=== PATIENT | male | born 1975 | race Two or more races ===

== ENCOUNTER 2022-08-10 14:35 | Emergency (ER) | payer MEDICAID, SELFPAY ==
[2022-08-10] VITALS (15 sets, daily range): BP systolic 184–202; BP diastolic 96–110; PULSE 94–104; RESP 16; TEMP 36.7; O2SAT 90–98; BMI 26.4
--- NOTE | 2022-08-10 14:44 | ED.NURSE ---
Pt is A&) x4 and states he does not feel the same way as he felt when he had a stroke 2 years ago. Pt is talking in coherent sentences, but walks very slowly because of his headache. he is also dizzy and naseous.
--- NOTE | 2022-08-10 15:17 | ED_ITS ---
HPI - General Adult General Time Seen by Provider: 15:17 Date Seen: 08/10/22 Chief complaint: Dizziness/Vertigo Stated complaint: Headache, nausea Time Seen by Provider: 08/10/22 14:55 Source: patient Mode of arrival: ambulatory Limitations: no limitations History of Present Illness HPI narrative: 46-year-old male who comes in today with 3-4 days of headache. Headache is generalized, and constant. Not worse with position. He has not taken any medication for this. He notes nausea and some photophobia but no vomiting. He denies cough, fever, chills, runny nose. History of prior stroke but no new weakness today. Related Data Home Medications Medication Instructions Recorded Confirmed atorvastatin 40 mg tablet mg 08/10/22 blood sugar diagnostic (Accu-Chek 08/10/22 08/10/22 Guide test strips) insulin glargine 100 unit/mL unit subcut 08/10/22 subcutaneous solution (Lantus U-100 Insulin) lisinopril 5 mg tablet mg 08/10/22 metformin 1,000 mg tablet mg 08/10/22 pen needle, diabetic 31 gauge x 08/10/22 08/10/22 3/16 (BD Ultra-Fine Mini Pen Needle) trazodone 100 mg tablet mg 08/10/22 Allergies Allergy/AdvReac Type Severity Reaction Status Date / Time No Known Drug Allergies Allergy Verified 08/10/22 15:12 Review of Systems Status of ROS: Reports: 10 or more systems reviewed and unremarkable except as noted in History and below PFSH PFSH Social History Smoking Status: Former smoker Do you use any of these nicotine containing products: None Second hand tobacco smoke exposure: No How often do you have a drink containing alcohol: never AUDIT-C Alcohol total score: 0 Non-prescribed substance use: denies use Exam Narrative: Exam Narrative: General: Well-developed and well-nourished, no acute distress Head: Atraumatic and normocephalic Eyes: Pupils are equal reactive, extraocular motions intact, conjunctiva clear ENT: External nose and ears are normal, posterior pharynx without erythema or exudate Neck: No midline cervical tenderness, full spontaneous range of motion the neck, trachea midline, no adenopathy Heart: Regular rate and rhythm no murmurs or thrills Lungs: Clear to auscultation bilaterally without wheezes or crackles Abdomen: Soft, nontender, nondistended with active bowel sounds Musculoskeletal: No tenderness, deformity, or edema Neurologic: Awake, alert, and oriented x3, no gross focal neurologic deficits, cranial nerves intact as tested Psych: Mood and affect are appropriate Skin: No rashes Const: Vital Signs, click to edit/add: Vital Signs - 24 hr 08/10/22 14:39 08/10/22 15:54 08/10/22 16:00 Temperature 98.0 F Pulse Rate 97 97 Pulse Rate [Pulse Oximeter] 104 H Respiratory Rate 16 Blood Pressure Blood Pressure [Ri ght Upper Arm] 202/97 H Pulse Oximetry 98 95 95 Oxygen Delivery Me thod Room Air Room Air 08/10/22 16:15 08/10/22 16:26 08/10/22 16:30 Temperature Pulse Rate 97 96 97 Pulse Rate [Pulse Oximeter] Respiratory Rate Blood Pressure 200/110 H Blood Pressure [Ri ght Upper Arm] Pulse Oximetry 96 94 92 Oxygen Delivery Me thod 08/10/22 16:31 08/10/22 16:45 08/10/22 16:46 Temperature Pulse Rate 97 94 94 Pulse Rate [Pulse Oximeter] Respiratory Rate Blood Pressure 197/105 H 192/106 H Blood Pressure [Ri ght Upper Arm] Pulse Oximetry 94 94 94 Oxygen Delivery Me thod 08/10/22 17:00 08/10/22 17:01 08/10/22 17:15 Temperature Pulse Rate 94 94 99 Pulse Rate [Pulse Oximeter] Respiratory Rate Blood Pressure 192/96 H Blood Pressure [Ri ght Upper Arm] Pulse Oximetry 93 92 92 Oxygen Delivery Me thod 08/10/22 17:16 08/10/22 17:30 08/10/22 17:31 Temperature Pulse Rate 94 98 97 Pulse Rate [Pulse Oximeter] Respiratory Rate Blood Pressure 184/108 H 190/102 H Blood Pressure [Ri ght Upper Arm] Pulse Oximetry 93 90 94 Oxygen Delivery Me thod Course Course Hospital Course: Patient seen examined, prior records reviewed. Patient presents with generalized headache, nausea, and photophobia. History of prior acute CVA but no new neurologic symptoms today. Denies head injury. Has not taken anything for his head. Patient is hypertensive on initial arrival and tachycardic. Labs and head CT are ordered, consider an MRI but no new neurologic symptoms and no focal neurologic deficits on exam. Toradol and fluids are ordered. Will monitor blood pressure. Reevaluation(s) Reevaluation #1: CT scan the head independently interpreted by me does not demonstrate any acute findings, radiology interpretation agrees. Chest x-ray independently interpreted by me does not demonstrate any acute findings, radiology interpretation agrees. Time: 16:06 Reevaluation #2: Blood pressure slightly improved after rest. Discussed diagnosis and plan with patient. Patient is COVID positive which likely is the source of his headache and generalized weakness. Discussed continued symptomatic treatment and patient can be discharged. Time: 17:24 Vital Signs Vital signs: Initial Vital Signs Temperature 98.0 F 08/10/22 14:39 Temperature Source Temporal Artery Scan 08/10/22 14:39 Pulse Rate 104 H 08/10/22 14:39 Pulse Rhythm 08/10/22 14:39 Pulse Strength 3+ Normal 08/10/22 14:39 Respiratory Rate 16 08/10/22 14:39 Blood Pressure 202/97 H 08/10/22 14:39 Blood Pressure Mean 132 08/10/22 14:39 Pulse Oximetry 98 08/10/22 14:39 Oxygen Delivery Method 08/10/22 14:39 Vital Signs Temperature 98.0 F 08/10/22 14:39 Pulse Rate 104 H 08/10/22 14:39 Respiratory Rate 16 08/10/22 14:39 Blood Pressure 202/97 H 08/10/22 14:39 Pulse Oximetry 98 08/10/22 14:39 Oxygen Delivery Method 08/10/22 14:39 Temperature 98.0 F 08/10/22 14:39 Pulse Rate 97 08/10/22 17:31 Respiratory Rate 16 08/10/22 14:39 Blood Pressure 190/102 H 08/10/22 17:31 Pulse Oximetry 94 08/10/22 17:31 Oxygen Delivery Method 08/10/22 15:54 Medical Decision Making Medical Records Medical records reviewed: Yes I reviewed the patient's medical records Lab Data Lab results reviewed: Yes I reviewed the patient's lab results Labs: Lab Results 08/10/22 08/10/22 Range/Units 15:30 15:30 Sodium 140 (135-149) mmol/L Potassium 4.2 (3.6-5.1) mmol/L Chloride 105 (96-114) mmol/L Carbon Dioxide 28 (20-32) mmol/L BUN 30 H (5-24) mg/dL Creatinine 1.1 (0.5-1.5) mg/dL Estimated Creat Clear 69.52 Estimated GFR 83 ml/min Glucose 127 H (60-115) mg/dL Calcium 8.4 (8.4-10.6) mg/dL NT-Pro-B Natriuret Pep 121 pg/mL SARS-CoV-2 (PCR) POSITIVE SARS-CoV-2 A (Negative) Influenza Type A (PCR) Negative PCR FLU A (Negative) Influenza Type B (PCR) Negative PCR FLU B (Negative) Discharge Plan Discharge Clinical Impression: COVID, Hypertension Patient Disposition: Home, Self-Care Condition: Stable Instructions: COVID-19 (Coronavirus Disease 2019) (ED) Additional Instructions: Tylenol and ibuprofen for headache Take your usual medications as prescribed Tylenol e ibuprofeno para el dolor de felicitas [place] elena medicamentos habituales seg?n lo prescrito Activity Level: No Restrictions Discharge Diet: Regular Prescriptions: No Action atorvastatin 40 mg tablet Label Comments: TAKE 1 TABLET BY MOUTH AT BEDTIME insulin glargine [Lantus U-100 Insulin] 100 unit/mL solution SUBCUT Label Comments: INJECT 14 UNITS SUBCUTANEOUS BEFORE BEDTIME. PRODUCT DESIRED: LANTUS trazodone 100 mg tablet Label Comments: TAKE 1 TABLET BY MOUTH AT BEDTIME metformin 1,000 mg tablet lisinopril 5 mg tablet Label Comments: TAKE 1 TABLET BY MOUTH EVERY DAY (DME) Accu-Chek Guide test strips Strip MISCELLANEOUS Label Comments: DIRECTED FOUR TIMES DAILY. DISPENSE ITEM COVERED BY PT INS. E11.9 IDDM TYPE II (DME) pen needle, diabetic [BD Ultra-Fine Mini Pen Needle] 31 gauge x 3/16 needle MISCELLANEOUS Label Comments: USE TO ADMINSTER INSULIN AT HOME Stand Alone Forms: [facility] Info Instructions
--- NOTE | 2022-08-10 15:20 | CRLHL7_ITS ---
For Patients: As a result of the Century Cures Act, medical imaging exams and procedure reports are released immediately into your electronic medical record. You may view this report before your referring provider. If you have questions, please contact your health care provider. INDICATION: Headache, prior CVA TECHNIQUE: CT head without contrast. COMPARISON: Head CT October 2019. FINDINGS: Generalized volume loss. No intracranial hemorrhage. No discrete mass or mass effect. There is no midline shift. The basilar cisterns are patent. No hydrocephalus. The hillman-white matter interface is otherwise preserved. No acute osseous abnormality. No extracalvarial soft tissue abnormality. The mastoid air cells are clear. Hypo pneumatization of the right frontal sinus. The visualized portions of the orbits and globes are unremarkable. IMPRESSION: No acute intracranial process per unenhanced head CT. Please note that all CT scans at this facility use dose modulation, iterative reconstruction, and/or weight-based dosing when appropriate to reduce radiation dose to as low as reasonably achievable. Dictated by Justin Douglass MD @ 08/10/2022 3:58:49 PM (Electronically Signed)
--- NOTE | 2022-08-10 15:20 | CRLHL7_ITS ---
For Patients: As a result of the Cures Act, medical imaging exams and procedure reports are released immediately into your electronic medical record. You may view this report before your referring provider. If you have questions, please contact your health care provider. INDICATION: Tachycardia, cough. TECHNIQUE: Chest 2 views. COMPARISON: None. FINDINGS: Lungs: Normal lung volume. No consolidation. Multiple calcified granulomas in the right lung. Pleura: No pleural effusion or pneumothorax. Heart and Mediastinum: Normal heart size. The great vessels of the thorax are unremarkable. Bones: No acute displaced osseous process. IMPRESSION: No consolidation. Dictated by Justin Douglass MD @ 08/10/2022 4:00:21 PM (Electronically Signed)
[2022-08-10] MEDS: KETOROLAC 15 MG/ML inj IVP (15:56)
[2022-08-10] MEDS: ONDANSETRON 2 MG/ML inj 4 MG IVP (15:56)
[2022-08-10] MEDS: 0.9 % SODIUM CHLORIDE 1000 ml 1,000 ML IV (15:56)
[2022-08-10 16:23] LABS: PCR FLU A Negative PCR FLU A (Negative); PCR FLU B Negative PCR FLU B (Negative)
[2022-08-10 16:24] LABS: SARS PCR* POSITIVE SARS-CoV-2 (Negative)
[2022-08-10 17:06] LABS: Blood Urea Nitrogen* 30 mg/dL (5-24); Calcium* 8.4 mg/dL (8.4-10.6); Carbon Dioxide* 28 mmol/L (20-32); Chloride* 105 mmol/L (96-114); Creatinine* 1.1 mg/dL (0.5-1.5); Est. Creatinine Clearance* 69.52; Estimated Glomerular Filt Rate 83 ml/min; Potassium* 4.2 mmol/L (3.6-5.1); Sodium* 140 mmol/L (135-149)
[2022-08-10 17:07] LABS: Glucose* 127 mg/dL (60-115); NT Pro B Type NatriureticPept* 121 pg/mL
== END 2022-08-10 17:35 | disposition home or self-care (01) ==
PROVIDERS: Emergency Provider Family Medicine; PCP Family Medicine
DX: U07.1 COVID-19 (principal); I10 Essential (primary) hypertension
CPT/HCPCS: 36415; 70450; 71046; 80048; 83880; 87631; 96374; 96375; 99283; 99284; 99285; J1885; J2405; J7030

== ENCOUNTER 2025-01-24 11:35 | Emergency (ER) | payer MEDICAID, SELFPAY ==
--- OUTSIDE RECORDS SUMMARY | 2025-01-24 11:39 | XMS_ITS | Clinical Summary ---
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 90 tablet 3 0 Active blood-glucose meterIndications :Diabetes mellitus without complication (HC) As directed. Accu chek Guide, Test 1 times dailyAs directed. Please refill supplies for 1 year. 1 Each 3 Active medication order composer Guava, cinnamon, nepalese root tea leaves for blood sugar control Active traZODone (DESYREL) 100 mg tabletIndication s:Insomnia, unspecified type Take 1 Tablet (100 mg) by mouth at bedtime. 90 Tablet 3 4 Active blood sugar diagnostic (Accu-Chek Guide test strips) stripIndications :Diabetes mellitus without complication (HC) Dispense item covered by pt ins. E11.9 IDDM type II. Check blood sugar once daily. 100 Each 3 4 Active atorvastatin (LIPITOR) 40 mg tabletIndication s:Cerebrovascula r accident (CVA) due to thrombosis of cerebral artery (HC) Take 1 Tablet (40 mg) by mouth at bedtime. 90 Tablet 3 4 Active lancets (Accu-Chek Fastclix Lancet Drum)Indications :Diabetes mellitus without complication (HC) As directed once daily. Dispense item covered by pt ins. E11.9 NIDDM type II - Test 1 time/day 100 Each 3 4 Active polyethylene glycol-electroly te 236-22.74-6.74 -5.86 gram suspensionIndica tions:Encounter for screening colonoscopy Drink 2 liters (half the bottle) the day before colonoscopy and 2 liters (remaining prep) 6 hours prior to colonoscopy appointment. 4000 mL 5 Active Additional Information Patient not taking.Reported on 01/23/2025 chlorthalidone 25 mg tabletIndication s:HTN (hypertension) Take 0.5 Tablets (12.5 mg) by mouth once daily in the morning. 45 Tablet 3 5 Active Additional Information Patient not taking.Reported on 01/23/2025 lisinopriL 10 mg tabletIndication s:HTN (hypertension) TAKE 1 TABLET BY MOUTH TWO TIMES DAILY. 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 He weighed 170 pounds and was eating a lot of sweets then. Encounters Date Type Department Care Team Description 01/24/2025 Telephone [facility] [address] [place] [address] Augie Burch MD 01/24/2025 Telephone [facility] [address] [facility] [place] [address] Mindy Niharikaangeline Pyle, DO Abnormal Lab Results 01/23/2025 9:15 AM CDT Office Visit [facility] [address] [facility] [place] [address] Augie Burch MD Diabetes (Diabetic Check ) 01/23/2025 Travel 12/10/2024 Orders Only [facility] Scanner 1 scan: (1-Ord) [facility], 12/10/2024 12/05/2024 Refill [facility] [address] [place] [address] Augie Burch MD Refill Request (Lisinopril) 11/28/2024 Telephone [facility] [address] [place] [address] Óscar Marshall MD Screening 11/14/2024 9:15 AM CDT Office Visit [facility] [address] [place] [address] Augie Burch MD Pre-Op Exam (Pre-colonscopy ) 11/14/2024 Travel 10/26/2024 Telephone [facility] [address] [place] [address] Augie Burch MD Medication Management from Last 3 Months Immunizations Immunization Administration Dates Next Due COVID-19 VACCINE SPIKEVAX (M ODERNA 50MCG/0.5ML) 12YO+ PFS 07/24/2024,05/11/2023 COVID-19 vaccine (Kalie-J&J) PF MDV COVID-19 vaccine (Preparis-Bio NTech 30mcg/0.3mL) PFMDV 08/12/2021 Hepatitis B (Adult) 12/10/2022,08/31/2021,2019 INFLUENZA, IIV3 PF (AGE >= 6 MO) 07/24/2024 Influenza, IIV4 05/11/2023,05/11/2021 Pneumococcal Conj 20-valent (Prevnar 20) 022 Pneumococcal Poly,23-Valent (Pneumovax) 02/27/20 20 Tdap 02/27/2020 Zoster (Shingrix-RZV, recombinant) 10/23/2024 Family History Medical History Relation Name Comments Diabetes type II Brother Alcoholism Father Good Health Mother Diabetes type II Sister Relation Name Status Comments Brother Alive Father (Age 35) Alcohol ab use Mother Alive Sister Alive Social History Tobacco Use Types Packs/Day Years Used Date Smoking Tobacco: Never Passive Smoke Exposure: Yes Smokeless Tobacco: Never Tobacco Cessation:Counseling Given: No Alcohol Use Standard Drinks/Week Comments Not Currently 0 (1 standard drink = 0.6 oz pur e alcohol) none PHQ-2 Answer Date Recorded PHQ-2 TOTAL SCORE 0 01/23/2025 Social Connections Answer Date Recorded Do you often feel lonely or isolated from those around you? 0 01/23/2025 Financial Resource Strain Answer Date R ecorded Difficulty of Paying Living Expenses 3 01/23/2025 Difficulty of Paying Living Expenses Not on file 01/23/2025 Food Insecurity Answer Date Recorded Do you worry your food will run out before you are able to buy more? 2 01/23/2025 Transportation Needs Answer Date Record ed Does lack of transportation keep you from medica l appointments? 2 01/23/2025 Does lack of transportation keep you from work, meetings or getting things that you need? 2 01/23/2025 Housing Stability Answer Date Recorded What is your housing situation today? 1 01/23/2025 Utilities Answer Date Recorded Do you have trouble paying f or utilities (for example, heat, electricity, water, phone)? 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 Gender Identity Not on file Sexual Orientation Not on file Obstetrics History Last Filed Vital Signs Vital Sign Reading Time Taken Comments Blood Pressure 143/76 01/23/2025 10:13 AM CDT Pulse 60 01/23/2025 9:56 AM CDT Temperature 36.3 C (97.3 F) 10/23/2024 9:31 AM CDT Respiratory Rate 18 12/25/2019 6:30 AM CDT Oxygen Saturation 100% 01/23/2025 9:56 AM CDT Inhaled Oxygen Concentration - - Weight 68.6 kg (151 lb 3.2 oz) 01/23/2025 9:56 A M CDT Height 163 cm (5' 4.17) 10/23/2024 9:31 AM CDT Body Mass Index 25.81 10/23/2024 9:31 AM CDT Plan of Treatment Upcoming Encounters Date Type Department Care Team (Late st Contact Info) Description 07/18/2025 9:30 AM AUXILIARY EQUIPMENT OPERATOR Orders Only [facility] [address] [place] [address] [place], [place] 07/26/2025 9:15 AM AUXILIARY EQUIPMENT OPERATOR Office Visit [facility] [address] [place] [address] Augie Burch MD [address] [place] [address] Health Maintenance Due Date Last Done Comments Zoster (shingles) series for age 50+ (2 of 2) 12/18/2024 10/23/2024 BMI (ht and wt on same day) for age 18+ 10/23/2025 10/23/2024, 12/14/2021, 08/24/2021, Additional history exists Depression screening for age 12+ 01/23/2026 01/23/2025, 12/07/2023, 12/07/2023, Additional history exists Lipids for age 45-75 01/23/2030 01/23/2025, 10/23/2024, 05/14/2024, Additional history exists Tetanus booster 02/26/2030 02/27/2020 Colonoscopy through age 75 11/28/2034 11/28/2024 Tdap Completed 02/27/2020 Pneumococcal series for age 50+ Completed , 02/27/2020 HIV for age 15-65 Completed 12/10/2022 Hepatitis B series for 19+ Completed 12/10, 08/31/2021, 02/27/2020 Hepatitis C screening for ag e 18-79 Completed 12/10/2022 COVID-19 vaccine series Completed 07/24/20, 05/11/2023, 08/12/2021, Additional history exists Influenza Vaccine Completed 07/24/2024, , 05/11/2021 Procedures Procedure Name Priority Date/Time Associated Diagnosis Comments BASIC METABOLIC PANEL Routine 01/23/2025 10:56 AM CDT LIPID PANEL W REFLEX MEASURED LDL Routine 01/23/2025 10:56 AM CDT HEMOGLOBIN A1C MONITORING (POCT) Routine 01/23/2025 10:55 AM CDT Diabetes mellitus without complication (HC) SCAN-EYE EXAM 12/10/2024 12:00 AM CDT COLONOSCOPY SCREENING Routine 11/28/2024 7:58 AM CDT Screening for colon cancer LC HIV-1/O/2, 4TH GENERATION Routine 12/10/2022 11:20 AM CDT Type II or unspecified type diabetes mellitus without mention of complication, not stated as uncontrolled Screening for HIV (human immunodeficiency virus) Need for hepatitis C screening test LC HCV ANTIBODY RFX TO QUANT PCR Routine 12/10/2022 11:20 AM CDT Type II or unspecified type diabetes mellitus without mention of complication, not stated as uncontrolled Screening for HIV (human immunodeficiency virus) Need for hepatitis C screening test from Last 3 Months or Most Recently Relevant to Health Maintenance Results * LIPID PANEL W REFLEX MEASURED LDL (01/23/2025 10:56 AM CDT) CHOLESTEROL, TOTAL 119 <200 mg/dL [facility] HDL CHOLESTEROL 45 > OR = 40 mg/dL [facility] TRIGLYCERIDES 74 <150 mg/dL [facility] LDL-CHOLESTEROL 59 mg/dL (calc) [facility] Comment: Reference range: <100 Desirable range <100 mg/dL for primary prevention; <70 mg/dL for patients with CHD or diabetic patients with > or = 2 CHD risk factors. LDL-C is now calculated using the Esdras calculation, which is a validated novel method providing better accuracy than the Friedewald equation in the estimation of LDL-C. Óscar DE ANDA et al. PHILL. 2013;310(19): 7762-5543 (http://education.TripFab/faq/NYH685) CHOL/HDLC RATIO 2.6 <5.0 (calc) [facility] NON HDL CHOLESTEROL 74 <130 mg/dL (calc) [facility] Comment: For patients with diabetes plus 1 major ASCVD risk factor, treating to a non-HDL-C goal of <100 mg/dL (LDL-C of <70 mg/dL) is considered a therapeutic option. 01/23/2025 10:5 6 AM CDT 01/23/2025 10:57 AM CDT us Augie Burch MD CHEMISTRY Final Resu lt Companion Canine [facility] [address] [place] [address], [facility] [address] [place] [address] * (ABNORMAL) BASIC METABOLIC PANEL (01/23/2025 10:56 AM CDT) GLUCOSE 131(H) 65 - 99 mg/dL [facility] Comment: Fasting reference interval For someone without known diabetes, a glucose value >125 mg/dL indicates that they may have diabetes and this should be confirmed with a follow-up test. UREA NITROGEN (BUN) 35(H) 7 - 25 mg/dL [facility] CREATININE 1.85(H) 0.70 - 1.30 mg/dL [facility] EGFR 44(L) > OR = 60 mL/min/1.7 3m2 [facility] BUN/CREATININE RATIO 19 6 - 22 (calc) [facility] SODIUM 133(L) 135 - 146 mmol/L [facility] POTASSIUM 6.4(HH) 3.5 - 5.3 mmol/L [facility] Comment: Verified by repeat analysis. CHLORIDE 102 98 - 110 mmol/L [facility] CARBON DIOXIDE 25 20 - 32 mmol/L [facility] ELECTROLYTE BALANCE 6(L) 7 - 17 mmol/L (calc) [facility] CALCIUM 8.8 8.6 - 10.3 mg/dL [facility] 01/23/2025 10:5 6 AM CDT 01/23/2025 10:57 AM CDT Augie Burch MD CHEMISTRY Final Resu lt Performing Organization Address City/[facility]/ZIP Co de Phone Number [facility] [address] [place] [address], [place] [phone] [facility] [address] [place] [address] * (ABNORMAL) HEMOGLOBIN A1C MONITORING (POCT) (01/23/2025 10:55 AM CDT) Pathologist [facility] POC HEMOGLOBIN A1C 6.3(H) <6.0 % OF TOTAL HGB [facility] Comment: Any point of care results exhibiting inconsistency with the patient's clinical status should be repeated using a different testing method. Blood BLOOD SPECIMEN / Unknown 01/23/2025 10:55 AM CDT 01/23/2025 10:56 AM CDT Augie Burch MD CHEMISTRY Final Resu lt Performing Organization Address City/[facility]/ZIP Co de Phone Number [facility] [address] [place] [address], [place] [phone] [facility] [address] [place] [address] * SCAN-EYE EXAM (12/10/2024 12:00 AM CDT) us Scanner OTHER Final Result * LC HCV ANTIBODY RFX TO QUANT PCR (12/10/2022 11:20 AM CDT) Pathologist [facility] HCV Ab Non Reactive Non Reactive 12/15/2022 12:06 AM CDT [facility] ([facility] Blood BLOOD SPECIMEN / Unknown Venipuncture / Unknown 12/10/2022 11:20 AM CDT 12/10/2022 11:22 AM CDT [facility] ([facility]) - 12/15/2022 12:06 AM CDT Performed at: [address] [place] [id number] Senior Product Integrity Engineer: Edmundo Villar MD, Phone: [phone] Augie Burch MD LABORATORY Final Resu lt Performing Organization Address [facility] Co de Phone Number [facility] ([facility]) [address] [place] [address] * LC HIV-1/O/2, 4TH GENERATION (12/10/2022 11:20 AM CDT) HIV Scr 4th Gen Non Reactive Non Reactive 12/14/2022 1:09 PM CDT [facility] ([facility] Comment: HIV Negative HIV-1/HIV-2 antibodies and HIV-1 p24 antigen were NOT detected. There is no laboratory evidence of HIV infection. Blood BLOOD SPECIMEN / Unknown Venipuncture / Unknown 12/10/2022 11:20 AM CDT 12/10/2022 11:22 AM CDT [facility] ([facility]) - 12/14/2022 1:09 PM CDT Performed at: [address] [place] [id number] Senior Product Integrity Engineer: Edmundo Villar MD, Phone: [phone] Augie Burch MD LABORATORY Final Resu lt Performing Organization Address City/[facility]/ZIP Co de Phone Number [facility] ([facility]) [address] [place] [address] from Last 3 Months or Most Recently Relevant to Health Maintenance Insurance RJ BARKER * Guarantor: [employer] Account Type Relation to Patient Date of Phone Billing Address [facility] [address] ATTN JANICE CHOUDHURY [address] [place] [address] Advance Directives * Full Code (Latest Code Status on File) Date Activated Date Inactivated Comments 11/23/2019 12:15 PM 12/25/2019 7:25 PM Question Answer Comments Code Status Discussion: Per Existing Order Care Teams Commercial Lawn Specialist Relationship Specialty Start Date End Date [place]ie [place] [address] PCP - General Family Practice 11/23/19
--- OUTSIDE RECORDS SUMMARY | 2025-01-24 11:39 | XMS_ITS ---
Author Organization Unknown Encounters Encounter Type Performer Location Encounter Date Encoun ter Notes virtual - - [id number] 0:00 no notes Patient Care team information Name Category Status Period Participants - - Proposed period not known - - - period not known - Notes Author - Date Note - no notes
--- OUTSIDE RECORDS SUMMARY | 2025-01-24 11:39 | XMS_ITS | Patient Health Record ---
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 Fine Diamond Dies Name Role Phone PhanPaige Unavailable [phone] Allergies No Known Allergies Reason For Referral No Information Medications Medication SIG (Take, Route, Frequency, Duration) Notes Start Date End Date Status Aspirin 81 Active Lisinopril Active traZODone HCl Active Social History Tobacco Use: Social History Observation Description Date Details (start date - stop date) Never Smoker NA - NA Tobacco Control (Standard) Question Answer Notes Tobacco use: Nonsmoker Additional Findings: Tobacco non-user Current no nsmoker Problems Problem Type SNOMED Code ICD Code Onset Dates Problem Status W/U Status Risk Notes Problem Presbyopia (86518197) Presbyopia (H52.4) Active confirmed Problem [id number] 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) Active confirmed Problem Myopia of both eyes (698535416132497) Myopia of both eyes (H52.13) Active confirmed Problem Hypertensive retinopathy (5772118) Hypertensive retinopathy of both eyes, grade 3 (H35.033) Active confirmed Problem Type 2 diabetes mellitus with both eyes affected by severe nonproliferative retinopathy and macular edema, with long-term current use of insulin (E11.3413) Active confirmed Encounters Encounter Location Date Provider Diagnosis [facility] [address] [place] [address] 07/30/2024 Paige Phan Combined forms of age-related cataract of both eyes H25.813 ; Type 2 diabetes mellitus with both eyes affected by severe nonproliferative retinopathy and macular edema, with long-term current use of insulin E11.3413 ; Hypertensive retinopathy of both eyes, grade 3 H35.033 ; Presbyopia H52.4 ; Myopia of both eyes H52.13 ; Regular astigmatism of both eyes H52.223 and History of stroke Z86.73 Assessments Encounter Date Diagnosis (ICD Code) Assessment Notes Treatment Notes Treatment Clinical Notes Section Notes 07/30/2024 Combined forms of age-related cataract of both eyes (ICD-10 - H25.813) 07/30/2024 Type 2 diabetes mellitus with both eyes affected by severe nonproliferative retinopathy and macular edema, with long-term current use of insulin (ICD-10 - E11.3413) SSDI Exam. 07/30/2024 Hypertensive retinopathy of both eyes, grade 3 (ICD-10 - H35.033) SSDI Exam. 07/30/2024 Presbyopia (ICD-10 - H52.4) SSDI Exam. 07/30/2024 Myopia of both eyes (ICD-10 - H52.13) SSDI Exam. 07/30/2024 Regular astigmatism of both eyes (ICD-10 - H52.223) SSDI Exam. 07/30/2024 History of stroke (ICD-10 - Z86.73) SSDI Exam Plan Of Treatment No Information Insurance Providers Payer Name Payer Address Payer Phone Subscriber Number Group Number Insured Name Patient Relationship to Insured Coverage Start Date Coverage End Date Disability Determination Services [address] [address] [place] [address] [id number] Rasheed Westbrook Self - patient is the insured 4 5 Medical (General) History Medical History History ICD Code hypertension stroke type II diabetes
[2025-01-24 11:42] VITALS: BP 195/94; PULSE 60; RESP 16; TEMP 36.6; O2SAT 98; BMI 26.6
--- NOTE | 2025-01-24 11:54 | ED_ITS ---
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 He comes in stating that he feels normal but needs to have his potassium checked. Apparently he had it checked yesterday and the value returned at 6.4. The patient is on lisinopril and does have diabetes. Related Data Home Medications ?Medication ?Instructions ?Recorded ?Confirmed atorvastatin 40 mg tablet 40 mg PO HS 08/10/22 5 blood sugar diagnostic (Accu-Chek 08/10/22 11/08/23 Guide test strips) insulin glargine 100 unit/mL unit subcut 08/10/2204/24 subcutaneous solution (Lantus U-100 Insulin) lisinopril 5 mg tablet 5 mg PO DAILY 08/10/2201/24 metformin 1,000 mg tablet mg 08/10/22 11/08/23 pen needle, diabetic 31 gauge x 08/10/22 11/08/2310/14 (BD Ultra-Fine Mini Pen Needle) trazodone 100 mg tablet 100 mg PO HS 08/10/22 aspirin 81 mg capsule 81 mg PO DAILY 01/24/2512/31 Allergies Allergy/AdvReac Type Severity Reaction Status Date / Time No Known Drug Allergies Allergy Verified 01/24/25 11:42 Review of Systems Status of ROS: Reports: 10 or more systems reviewed and unremarkable except as noted in History and below Narrative: Constitutional: No fevers, no weight gain or loss. Eyes: No discharge. No vision changes. HENT: No congestion, no sore throat, no ear pain. Cardiovascular: No chest pain, no palpitations. Respiratory: No shortness of breath, no wheezes, no cough. Gastrointestinal: No abdominal pain, no vomiting, no diarrhea. Genitourinary: No dysuria, no hematuria. Musculoskeletal: Normal range of motion. Skin: No rashes, no pruritis. Neurological: No dizziness, weakness, sensory change, speech change. Endo/Heme/Allergies: No bruising or bleeding. No polydipsia. Pysch: no suicidality, no anxiety, no insomnia. All other systems reviewed and are negative. [facility] Medical History (Updated 01/24/25 @ 13:06 by Abram Bermeo MD) Diabetic neuropathy ?E11.40 - Type 2 diabetes mellitus with diabetic neuropathy, unspecified (ICD-10) Severe nonproliferative diabetic retinopathy of both eyes ?E11.3493 - Type 2 diabetes mellitus with severe nonproliferative diabetic retinopathy without macular edema, bilateral (ICD-10) Coordination problem ?R27.9 - Unspecified lack of coordination (ICD-10) History of aspiration pneumonitis ?Z87.09 - Personal history of other diseases of the respiratory system (ICD- 10) Dysphagia ?R13.10 - Dysphagia, unspecified (ICD-10) Insomnia ?G47.00 - Insomnia, unspecified (ICD-10) Hyperlipidemia ?E78.5 - Hyperlipidemia, unspecified (ICD-10) History of alcohol dependence ?F10.21 - Alcohol dependence, in remission (ICD-10) History of CVA (cerebrovascular accident) (11/18/19) ?Z86.73 - Personal history of transient ischemic attack (TIA), and cerebral infarction without residual deficits (ICD-10) Type 2 diabetes mellitus (2000) ?E11.9 - Type 2 diabetes mellitus without complications (ICD-10) Hypertension ?I10 - Essential (primary) hypertension (ICD-10) Surgical History (Updated 11/03/23 @ 09:30 by Kristina Henderson) History of gastrostomy tube placement Family History (Updated 11/03/23 @ 09:28 by Kristina Henderson) Father Alcohol dependence Brother Diabetes Sister Diabetes Social History (Updated 11/08/23 @ 10:40 by Trudy Perez ~ [facility]) Narrative: . 4 boys. 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 What is your current living situation?: I presently have a place to live Problems where you live: declined to answer In the past 12 months, utilities in danger of being shut off: no In past 12 months, lack of transportation kept you from medical appts, meetings, work, or getting things needed for daily living: no In the past 12 mos, have been you worried that your food would run out before you had money to buy more?: never true In the past 12 mos, the food you bought just didn't last and you didn't have money to buy more?: never true Smoking Status: Former smoker Do you use any of these nicotine containing products: None Second hand tobacco smoke exposure: No How often do you have a drink containing alcohol: never AUDIT-C Alcohol total score: 0 Non-prescribed substance use: denies use How often does anyone, including family, friends and others, physically hurt you : never How often does anyone, including family, friends and others, insult or talk down to you: never How often does anyone, including family, friends and others, threaten you with harm: never How often does anyone, including family, friends and others, scream or curse at you: never Exam Narrative: Exam Narrative: Constitutional: Well-developed, well-nourished, no acute distress. HEENT: Normocephalic, atraumatic. Neck: Normal range of motion. Nontender. Supple. Heart: Regular. No murmurs. Normal rate. Intact distal pulses. Lungs: Clear to auscultation. No chest discomfort. No wheezes, rhonchi, or rales. Abdomen: Normal bowel sounds. Nontender. No rebound tenderness. Genitalia: Deferred. Back: No midline tenderness. Normal range of motion. Extremities: Normal range of motion. No injury. Skin: Intact. No rash. Warm. No erythema or pallor. Neurologic: No altered sensation. No weakness. Alert and oriented. Psychiatric: No suicidality. No anxiety or depression. No insomnia. Nursing notes and vitals signs are reviewed. Const: Vital Signs, click to edit/add: Vital Signs - 24 hr 01/24/25 11:42 Temperature 98 F Pulse Rate [Pulse Oximeter] 60 Respiratory Rate 16 Blood Pressure [Ri ght Upper Arm] 195/94 H Pulse Oximetry 98 Oxygen Delivery Me thod Room Air Course Vital Signs Vital signs: Initial Vital Signs Temperature 98 F 01/24/25 11:42 Temperature Source Temporal Artery Scan 01/24/25 11:42 Pulse Rate 60 01/24/25 11:42 Respiratory Rate 16 01/24/25 11:42 Blood Pressure 195/94 H 01/24/25 11:42 Blood Pressure Mean 127 H 01/24/25 11:42 Blood Pressure Position Sitting 01/24/25 11:42 Pulse Oximetry 98 01/24/25 11:42 Oxygen Delivery Method Room Air 01/24/25 11:42 Vital Signs Temperature 98 F 01/24/25 11:42 Pulse Rate 60 01/24/25 11:42 Respiratory Rate 16 01/24/25 11:42 Blood Pressure 195/94 H 01/24/25 11:42 Pulse Oximetry 98 01/24/25 11:42 Oxygen Delivery Method Room Air 01/24/25 11:42 Temperature 98 F 01/24/25 11:42 Pulse Rate 60 01/24/25 11:42 Respiratory Rate 16 01/24/25 11:42 Blood Pressure 195/94 H 01/24/25 11:42 Pulse Oximetry 98 01/24/25 11:42 Oxygen Delivery Method Room Air 01/24/25 11:42 Medical Decision Making MDM Narrative Medical decision making narrative: This patient comes in because of elevated potassium and was instructed to have it recheck. Apparently at a clinic yesterday it was at 6.4. The patient is not reporting any symptoms. Labs are acquired here and his potassium does return at 6.0. He is taking lisinopril. His primary physician did prescribe a different blood pressure medicine which she started yesterday. He states that he does not know the name of this medicine. His EKG today is reassuring with no peaked T- waves. The patient did receive a single dose of Lokelma. He is instructed to hold his lisinopril and follow up with his primary physician. Lab Data Labs: Lab Results 01/24/25 Range/Units 12:00 WBC 5.01 (4.50-11.00) K/uL RBC 3.48 L (4.30-5.90) m/uL Hgb 11.0 L (13.5-17.5) gm/dL Hct 32.1 L (37.0-53.0) % MCV 92 (80-100) fL MCH 32 (26-34) pg MCHC 34 (32-36) gm/dL RDW Coeff of Rolan 11.7 (11.5-15.5) % Plt Count 222 (140-440) K/uL Neut % (Auto) 64.2 (42.0-72.0) % Lymph % (Auto) 18.0 L (20-44) % [place] % (Auto) 8.4 (0.0-11.0) % Eos % (Auto) 8.8 H (0.0-7.0) % Baso % (Auto) 0.6 (0.0-3.0) % Neut # (Auto) 3.22 (1.7-7.0) K/uL Lymph # (Auto) 0.90 (0.90-2.90) K/uL [place] # (Auto) 0.40 (0.00-0.90) K/UL Eos # (Auto) 0.40 (0.00-0.50) K/uL Baso # (Auto) 0.03 (0.00-0.30) K/uL Abs Immat Gran (auto) 0.00 (0.00-0.30) K/uL Imm/Tot Granulo (auto) 0.0 % Sodium 132 L (135-149) mmol/L Potassium 6.0 H (3.6-5.1) mmol/L Chloride 100 (96-114) mmol/L Carbon Dioxide 25 (20-32) mmol/L Anion Gap 7 (7-15) mEq/L BUN 30 (7-30) mg/dL Creatinine 1.7 H (0.5-1.5) mg/dL Estimated Creat Clear 41.84 Estimated GFR 49 ml/min Glucose 138 H (60-115) mg/dL Calcium 8.9 (8.4-10.6) mg/dL ECG Data Attestation: I personally reviewed and interpreted this ECG as follows: Interpretation: Normal sinus rhythm. Rate is 56 beats per minute. There are no ST or T-wave abnormalities. There are no peaked T-waves. Discharge Plan Discharge Clinical Impression: Acute hyperkalemia Patient Disposition: Home, Self-Care Condition: Stable Additional Instructions: Hold lisinopril. Follow-up with primary physician for ongoing management of blood pressure. Return if worsening. Prescriptions: No Action atorvastatin 40 mg tablet 40 mg PO HS Patient Comments: TAKE 1 TABLET BY MOUTH AT BEDTIME insulin glargine [Lantus U-100 Insulin] 100 unit/mL solution SUBCUT Patient Comments: INJECT 14 UNITS SUBCUTANEOUS BEFORE BEDTIME. PRODUCT DESIRED: LANTUS trazodone 100 mg tablet 100 mg PO HS Patient Comments: TAKE 1 TABLET BY MOUTH AT BEDTIME metformin 1,000 mg tablet lisinopril 5 mg tablet 5 mg PO DAILY Patient Comments: TAKE 1 TABLET BY MOUTH EVERY DAY (DME) Accu-Chek Guide test strips Strip MISCELLANEOUS Patient Comments: DIRECTED FOUR TIMES DAILY. DISPENSE ITEM COVERED BY PT INS. E11.9 IDDM TYPE II (DME) pen needle, diabetic [BD Ultra-Fine Mini Pen Needle] 31 gauge x 3/16 needle MISCELLANEOUS Patient Comments: USE TO ADMINSTER INSULIN AT HOME aspirin 81 mg capsule 81 mg PO DAILY Follow Up/Referrals: Deonte Wheatley MD [Staff Physician, Internal Medicine] Stand Alone Forms: [employer] Info Instructions
--- OUTSIDE RECORDS SUMMARY | 2025-01-24 12:04 | XMS_ITS ---
Author Organization Unknown Encounters Encounter Type Performer Location Encounter Date Encoun ter Notes virtual - - [id number] 0:00 no notes Patient Care team information Name Category Status Period Participants - - Proposed period not known - - - period not known - Notes Author - Date Note - no notes
[2025-01-24 12:06] LABS: Basophils Absolute Auto 0.03 K/uL (0.00-0.30); Basophils Percent Auto 0.6 % (0.0-3.0); Eosinophils Percent Auto 8.8 % (0.0-7.0); Hematocrit 32.1 % (37.0-53.0); Mean Corpuscular HGB Conc 34 gm/dL (32-36); Mean Corpuscular Hemoglobin 32 pg (26-34); Mean Corpuscular Volume 92 fL (80-100); Monocytes Percent Auto 8.4 % (0.0-11.0); Neutrophils Absolute Auto 3.22 K/uL (1.7-7.0); Neutrophils Percent Auto 64.2 % (42.0-72.0); Platelet Count* 222 K/uL (140-440); RDW Coefficient of Variation % 11.7 % (11.5-15.5); Red Blood Count 3.48 m/uL (4.30-5.90); White Blood Count* 5.01 K/uL (4.50-11.00)
[2025-01-24 12:12] LABS: Slide Review Reflex No
[2025-01-24 12:19] LABS: Chloride* 100 mmol/L (96-114); Sodium* 132 mmol/L (135-149)
[2025-01-24 12:22] LABS: Anion Gap 7 mEq/L (7-15); Blood Urea Nitrogen* 30 mg/dL (7-30); Carbon Dioxide* 25 mmol/L (20-32); Creatinine* 1.7 mg/dL (0.5-1.5); Est. Creatinine Clearance* 41.84; Estimated Glomerular Filt Rate 49 ml/min
[2025-01-24 12:23] LABS: Calcium* 8.9 mg/dL (8.4-10.6); Glucose* 138 mg/dL (60-115)
[2025-01-24 12:53] LABS: Appearance Urine Clear (Clear); Bilirubin Urine Negative (Negative); Blood Urine 1+ (Negative); Color Urine Yellow (Yellow); Glucose Urine Negative (Negative); Ketones Urine Negative (Negative); Leukocyte Esterase Urine Negative (Negative); Nitrite Urine Negative (Negative); Protein Urine 2+ (Negative); Urobilinogen Urine 0.2 (0.2-1.0); pH Urine 6.5 (5.0-8.5)
[2025-01-24 13:05] LABS: RBC Urine 0-2 (0-2); WBC Urine 0-2 (0-5)
[2025-01-24] MEDS: SODIUM ZIRCONIUM CYCLOSILICATE 10 GM PO (13:06)
== END 2025-01-24 13:13 | disposition home or self-care (01) ==
PROVIDERS: Emergency Provider Emergency Medicine Emergency Medical Services; PCP Family Medicine
DX: E87.5 Hyperkalemia (principal); E11.9 Type 2 diabetes mellitus without complications; Z79.4 Long term (current) use of insulin; Z79.84 Long term (current) use of oral hypoglycemic drugs; Z79.899 Other long term (current) drug therapy
CPT/HCPCS: 36415; 80048; 81001; 85025; 93005; 99284